=== PATIENT | male | born 1975 | race Caucasian/White ===

== ENCOUNTER 2018-12-05 08:07 | Emergency (ER) | payer BC ==
[2018-12-05 08:34] LABS: Absolute Lymphocytes (CBC) 2.4 K/uL (0.7-4.9); Absolute Monocytes 0.7 K/uL (0.1-1.3); Absolute Neutrophil 5.3 K/uL (1.8-8.0); Basophils % 1.3 % (0-1.3); Eosinophils % 2.6 % (0-4.4); Hematocrit 47.9 % (39.6-49.0); MPV 8.5 fL (7.6-11.3); RBC Red Blood Cell Count 5.72 M/uL (4.33-5.43)
[2018-12-05 08:35] LABS: Protime INR 0.98
[2018-12-05 08:53] LABS: ALT/SGPT 54 U/L (12-78); AST/SGOT 22 U/L (15-37); Alkaline Phosphatase 77 U/L (45-117); BUN Blood Urea Nitrogen 19 mg/dL (7-18); Bicarbonate 27 mmol/L (21-32); Bilirubin Direct 0.2 mg/dL (0-0.2); Bilirubin Total 1.1 mg/dL (0.2-1.0); Glucose Level 91 mg/dL (74-106); Magnesium 2.2 mg/dL (1.8-2.4); NT PRO-BNP 8 pg/mL (<125); Potassium 4.3 mmol/L (3.5-5.1); Protein, Total 7.1 g/dL (6.4-8.2); Sodium Level 140 mmol/L (136-145); Troponin (Emerg Dept Use Only) < 0.02 ng/mL (0.0-0.045)
--- NOTE | 2018-12-05 09:34 | RAD REPORT ---
EXAM DESCRIPTION: Danae Single View12/05/2018 8:34 am CLINICAL HISTORY: Chest pain COMPARISON: none FINDINGS: The lungs appear clear of acute infiltrate. The heart is normal size IMPRESSION: No acute abnormalities displayed
[2018-12-05] MEDS ORDERED: ASPIRIN 81 MG CHEWABLE TABLET ONE (09:46)
--- NOTE | 2018-12-05 11:51 | EDPHYS ---
Physician Documentation [facility] Name: Joshua Baez Jr Age: 43 yrs Sex: Male : 1975 Arrival Date: 12/05/2018 Time: 08:08 Bed 6 Private MD: ED Physician Geovanny Eubanks HPI: 12/05 08:20 This 43 yrs old Male presents to ER via Ambulatory with complaints of Chest jr8 Pain, Shoulder Pain. 08:20 The patient or guardian reports chest pain that is located primarily in the anterior jr8 chest wall, left. Onset: acutely, last night. The pain radiates to the left shoulder. Associated signs and symptoms: The patient has no apparent associated signs or symptoms. The chest pain is described as sharp. Duration: The patient or guardian reports multiple episodes. Modifying factors: The symptoms are alleviated by nothing. the symptoms are aggravated by nothing. Severity of pain: At its worst the pain was moderate. The patient has not experienced similar symptoms in the past. The patient has not recently seen a physician. Historical: - Allergies: 08:17 No Known Allergies; hb - Home Meds: 08:17 Zantac Oral [Active]; hb - PMHx: 08:17 GERD; hb - PSHx: 08:17 None; hb - Immunization history:: Adult Immunizations up to date. - Social history:: Smoking status: Patient/guardian denies using tobacco. - Ebola Screening: : No symptoms or risks identified at this time. ROS: 08:20 Eyes: Negative for injury, pain, redness, and discharge, ENT: Negative for injury, jr8 pain, and discharge, Neck: Negative for injury, pain, and swelling, Respiratory: Negative for shortness of breath, cough, wheezing, and pleuritic chest pain, Abdomen/GI: Negative for abdominal pain, nausea, vomiting, diarrhea, and constipation, Back: Negative for injury and pain, MS/Extremity: Negative for injury and deformity, Skin: Negative for injury, rash, and discoloration, Neuro: Negative for headache, weakness, numbness, tingling, and seizure. 08:20 Cardiovascular: Positive for chest pain, Negative for edema, orthopnea, palpitations, paroxysmal nocturnal dyspnea. Exam: 08:20 Eyes: Pupils equal round and reactive to light, extra-ocular motions intact. Lids and jr8 lashes normal. Conjunctiva and sclera are non-icteric and not injected. Cornea within normal limits. Periorbital areas with no swelling, redness, or edema. ENT: Nares patent. No nasal discharge, no septal abnormalities noted. Tympanic membranes are normal and external auditory canals are clear. Oropharynx with no redness, swelling, or masses, exudates, or evidence of obstruction, uvula midline. Mucous membranes moist. Neck: Trachea midline, no thyromegaly or masses palpated, and no cervical lymphadenopathy. Supple, full range of motion without nuchal rigidity, or vertebral point tenderness. No Meningismus. Chest/axilla: Normal chest wall appearance and motion. Nontender with no deformity. No lesions are appreciated. Cardiovascular: Regular rate and rhythm with a normal S1 and S2. No gallops, murmurs, or rubs. Normal PMI, no JVD. No pulse deficits. Respiratory: Lungs have equal breath sounds bilaterally, clear to auscultation and percussion. No rales, rhonchi or wheezes noted. No increased work of breathing, no retractions or nasal flaring. Abdomen/GI: Soft, non-tender, with normal bowel sounds. No distension or tympany. No guarding or rebound. No evidence of tenderness throughout. Back: No spinal tenderness. No costovertebral tenderness. Full range of motion. Skin: Warm, dry with normal turgor. Normal color with no rashes, no lesions, and no evidence of cellulitis. MS/ Extremity: Pulses equal, no cyanosis. Neurovascular intact. Full, normal range of motion. Neuro: Awake and alert, GCS 15, oriented to person, place, time, and situation. Cranial nerves II-XII grossly intact. Motor strength 5/5 in all extremities. Sensory grossly intact. Cerebellar exam normal. Normal gait. 08:40 ECG was reviewed by the Attending Physician. jr8 Vital Signs: 08:17 BP 115 / 83; Pulse 88; Resp 18; Temp 97.8; Pulse Ox 100% on R/A; Pain 4/10; hb 09:43 BP 132 / 82; Pulse 84; Resp 18; Pulse Ox 98% on R/A; ph 10:48 BP 114 / 80; Pulse 87; Resp 18; Temp 97.9; Pulse Ox 99% ; ph 12:22 BP 122 / 81; Pulse 86; Resp 18; Temp 97.9; Pulse Ox 99% on R/A; ph MDM: 08:16 Patient medically screened. jr8 11:48 Differential diagnosis: abnormal EKG, acute myocardial infarction, acute pericarditis, jr8 anxiety, chest wall pain, costochondritis, esophagitis, gastritis, gastroesophageal reflux disease (GERD), pleurisy, pneumonia, pneumothorax, pulmonary embolus, stable angina, thoracic aortic disection, unstable angina. HEART Score: History: Moderately Suspicious (1), ECG: Non specific repolarization disturbance / LBTB / PM (1), Age: < or = 45 years (0), Risk Factors: 1 or 2 risk factors (1), [Active Smoker] Troponin: < or = 1 x Normal Limit (0). The patient was given aspirin in the Emergency Department. Data reviewed: vital signs, nurses notes, lab test result(s), EKG, radiologic studies, plain films. Data interpreted: Pulse oximetry: on room air is 99 %. Interpretation: normal. Counseling: I had a detailed discussion with the patient and/or guardian regarding: the historical points, exam findings, and any diagnostic results supporting the discharge/admit diagnosis, lab results, radiology results, the need for outpatient follow up, a cow rider, a family practitioner. 12/05 08:17 Order name: Basic Metabolic Panel; Complete Time: 09:05 12/05 08:17 Order name: CBC with Diff; Complete Time: 08:42 12/05 08:17 Order name: LFT's; Complete Time: 09:05 12/05 08:17 Order name: Magnesium; Complete Time: 09:05 12/05 08:17 Order name: NT PRO-BNP; Complete Time: 09:05 12/05 08:17 Order name: PT-INR; Complete Time: 08:42 12/05 08:17 Order name: Troponin (emerg Dept Use Only); Complete Time: 09:05 12/05 08:17 Order name: XRAY Chest (1 view); Complete Time: 09:36 12/05 08:17 Order name: EKG; Complete Time: 08:18 12/05 08:17 Order name: Cardiac monitoring; Complete Time: 08:27 12/05 08:17 Order name: EKG - Nurse/Tech; Complete Time: 08:27 12/05 08:17 Order name: IV Saline Lock; Complete Time: :8 12/05 10:07 Order name: Troponin (emerg Dept Use Only); Complete Time: 11:48 12/05 08:17 Order name: Labs collected and sent; Complete Time: :12/05 08:17 Order name: O2 Per Protocol; Complete Time: :12/05 08:17 Order name: O2 Sat Monitoring; Complete Time: : EC:40 Rate is 91 beats/min. Rhythm is regular, Normal Sinus Rhythm. Right axis deviation jr8 noted. IL interval is normal at 178 msec. QRS interval is normal at 100 msec. QT interval is normal. No Q waves. T waves are Normal. T waves are Flattened in lead III. No ST changes noted. Clinical impression: NSR w/ Non-specific ST/T Changes. Interpreted by me. Reviewed by me. Administered Medications: 09:35 Drug: Aspirin Chewable Tablet 324 mg Route: PO; ph 09:44 Follow up: Response: No adverse reaction ph Disposition: 13:47 Co-signature as Attending Physician, Geovanny Eubanks MD I agree with the assessment and alex plan of care. Disposition: 12/05/18 11:50 Discharged to Home. Impression: Chest pain, unspecified. - Condition is Stable. - Discharge Instructions: Nonspecific Chest Pain, Aspirin and Your Heart, Chest Pain Observation. - Medication Reconciliation Form, Thank You Letter, Antibiotic Education, Prescription Opioid Use, Work release form form. - Follow up: Lazaro Cook MD; When: 2 - 3 days; Reason: Recheck today's complaints, Continuance of care, Re-evaluation by your physician. - Problem is new. - Symptoms have improved. Signatures: Dispatcher [employer] Geovanny Malave MD MD cha Roszak, Josh, PA PA jr8 Harleen Hill RN RN Rosina Chairez RN RN Corrections: (The following items were deleted from the chart) 12:22 11:50 12/05/2018 11:50 Discharged to Home. Impression: Chest pain, unspecified. ph Condition is Stable. Forms are Medication Reconciliation Form, Thank You Letter, Antibiotic Education, Prescription Opioid Use. Follow up: Lazaro Cook; When: 2 - 3 days; Reason: Recheck today's complaints, Continuance of care, Re-evaluation by your physician. Problem is new. Symptoms have improved. jr8
--- NOTE | 2018-12-05 11:51 | ER ---
Nurse's Notes [facility] Name: Joshua Baez Jr Age: 43 yrs Sex: Male : 1975 Arrival Date: 12/05/2018 Time: 08:08 Bed 6 Private MD: Diagnosis: Chest pain, unspecified Presentation: 12/05 08:16 Presenting complaint: Sharp left sided chest pain that radiates to left shoulder since hb yesterday. Denies cough. Transition of care: patient was not received from another setting of care. Onset of symptoms was December 04, 2018. Risk Assessment: Do you want to hurt yourself or someone else? Patient reports no desire to harm self or others. Care prior to arrival: None. 08:16 Method Of Arrival: Ambulatory 08:16 Acuity: MARLO 3 hb 09:43 Initial Sepsis Screen: Does the patient meet any 2 criteria? No. Patient's initial ph sepsis screen is negative. Does the patient have a suspected source of infection? No. Patient's initial sepsis screen is negative. Historical: - Allergies: 08:17 No Known Allergies; hb - Home Meds: 08:17 Zantac Oral [Active]; hb - PMHx: 08:17 GERD; hb - PSHx: 08:17 None; hb - Immunization history:: Adult Immunizations up to date. - Social history:: Smoking status: Patient/guardian denies using tobacco. - Ebola Screening: : No symptoms or risks identified at this time. Screenin:42 Abuse screen: Denies threats or abuse. Denies injuries from another. Nutritional ph screening: No deficits noted. Tuberculosis screening: No symptoms or risk factors identified. Fall Risk None identified. Assessment: 08:30 General: Appears in no apparent distress. uncomfortable, obese, well groomed, Behavior ph is calm, cooperative, appropriate for age, Denies fever, feeling ill. Pain: Complains of pain in anterior aspect of left upper chest and left breast Pain does not radiate. Pain began 2-3 days ago. Neuro: Level of Consciousness is awake, alert, obeys commands, Oriented to person, place, time, situation. Cardiovascular: Reports chest pain, Denies lightheadedness, nausea, palpitations, shortness of breath, Capillary refill < 3 seconds in bilateral fingers Patient's skin is warm and dry. Chest pain is located in left anterior chest wall is aggravated by breathing. Respiratory: Reports pain with respiration Airway is patent Respiratory effort is even, unlabored, Respiratory pattern is regular, symmetrical. GI: No signs and/or symptoms were reported involving the gastrointestinal system. Derm: Skin is intact, is healthy with good turgor, Skin is pink, warm \T\ dry. 09:44 Reassessment: Patient appears in no apparent distress at this time. Patient and/or ph family updated on plan of care and expected duration. Pain level reassessed. Patient is alert, oriented x 3, equal unlabored respirations, skin warm/dry/pink. 10:49 Reassessment: Patient appears in no apparent distress at this time. Patient and/or ph family updated on plan of care and expected duration. Pain level reassessed. Patient is alert, oriented x 3, equal unlabored respirations, skin warm/dry/pink. Pt resting quietly, awaiting results of repeat cardiac enzymes, VSS, SO at bedside. 12:21 Reassessment: Patient appears in no apparent distress at this time. Patient and/or ph family updated on plan of care and expected duration. Pain level reassessed. Patient is alert, oriented x 3, equal unlabored respirations, skin warm/dry/pink. Pt d/c home, instructed to follow up w/ canoe inspector final. Vital Signs: 08:17 BP 115 / 83; Pulse 88; Resp 18; Temp 97.8; Pulse Ox 100% on R/A; Pain 4/10; hb 09:43 BP 132 / 82; Pulse 84; Resp 18; Pulse Ox 98% on R/A; ph 10:48 BP 114 / 80; Pulse 87; Resp 18; Temp 97.9; Pulse Ox 99% ; ph 12:22 BP 122 / 81; Pulse 86; Resp 18; Temp 97.9; Pulse Ox 99% on R/A; ph Vitals: 10:48 Cardiac Rhythm Assessment Sinus rhythm. ph ED Course: 08:08 Patient arrived in ED. as 08:16 Kraig Saravia PA is PHCP. jr8 08:16 Geovanny Eubanks MD is Attending Physician. jr8 08:17 Triage completed. hb 08:17 Arm band placed on. hb 08:27 EKG done, by highway technician. reviewed by Geovanny Eubanks MD. Initial lab(s) drawn, by in, sent jb1 to lab. Inserted saline lock: 22 gauge in right antecubital area, using aseptic technique. Blood collected. 08:31 X-ray completed. Portable x-ray completed in exam room. Patient tolerated procedure ls3 well. 08:34 XRAY Chest (1 view) In Process Unspecified. EDMS 09:31 Harleen Hill, RN is Primary Nurse. ph 09:43 Patient has correct armband on for positive identification. phototypesetting equipment monitor on. Pulse ph ox on. NIBP on. Warm blanket given. 09:43 No provider procedures requiring assistance completed. Patient maintains SpO2 ph saturation greater than 95% on room air. 11:50 Lazaro Cook MD is Referral Physician. jr8 12:22 IV discontinued, intact, bleeding controlled, No redness/swelling at site. Pressure ph dressing applied. Administered Medications: 09:35 Drug: Aspirin Chewable Tablet 324 mg Route: PO; ph 09:44 Follow up: Response: No adverse reaction ph Outcome: 11:50 Discharge ordered by . jr8 12:22 Discharged to home ambulatory, with significant other. ph 12:22 Condition: good 12:22 Discharge instructions given to patient, family, Instructed on discharge instructions, follow up and referral plans. Demonstrated understanding of instructions, follow-up care. 12:22 Patient left the ED. ph Signatures: Dispatcher [employer] EDWV Mart Lazaro jb1 Alyx Ochoa Josh, PA PA jr8 Harleen Hill RN RN Rosina Chairez RN RN Clarissa Davis ls3
--- NOTE | 2018-12-05 12:16 | EKG ---
Test Date: 2018-12-05 Test Time: 08:25:26 Plant Puller: TAD MEASUREMENT RESULTS: Intervals: Rate: 91 NM: 178 QRSD: 100 QT: 364 QTc: 447 [place]: P: 45 NM: 178 QRS: 107 T: 32 INTERPRETIVE STATEMENTS: Normal sinus rhythm Possible Right ventricular hypertrophy Abnormal ECG No previous ECG available for comparison Electronically Signed On 12-05-18 12:15:36 CDT by Lazaro Cook
== END 2018-12-05 12:22 | disposition home or self-care (01) ==
LOC: ER 08:07
DX: R07.9 Chest pain, unspecified (principal); K21.9 Gastro-esophageal reflux disease without esophagitis
CPT/HCPCS: 36415; 71045; 80048; 80076; 83735; 83880; 84484; 85025; 85610; 93005; 99285

== ENCOUNTER 2019-09-13 18:37 | Emergency (ER) | payer BC ==
[2019-09-13] MEDS ORDERED: NA CHLORIDE 0.9% 1,000 ML ONE (20:20)
[2019-09-13] MEDS ORDERED: KETOROLAC 30 MG/ML INJ ONE (20:20)
[2019-09-13 20:23] LABS: Absolute Lymphocytes (CBC) 2.8 K/uL (0.7-4.9); Basophils % 0.8 % (0-1.3); Lymphocytes % 30.4 % (15.3-44.8); MPV 8.3 fL (7.6-11.3); RBC Red Blood Cell Count 5.15 M/uL (4.33-5.43)
[2019-09-13 20:42] LABS: Albumin 3.8 g/dL (3.4-5.0); Potassium 3.9 mmol/L (3.5-5.1); Protein, Total 6.6 g/dL (6.4-8.2)
[2019-09-13] MEDS ORDERED: LIDOCAINE 1% MPF 5 ML VIAL ONE (20:46)
[2019-09-13] MEDS ORDERED: BUPIVACAINE 0.5% PF 10 ML VIAL ONE (20:46)
--- NOTE | 2019-09-13 21:06 | RAD REPORT ---
EXAM DESCRIPTION: RAD - Foot Right 3 View - 09/13/2019 8:53 pm CLINICAL HISTORY: PAIN Pain and swelling COMPARISON: No comparisons FINDINGS: Mild soft tissue swelling affects the great toe. No fracture or aggressive bone lesion. Sm all calcaneal spurs are present.
--- NOTE | 2019-09-13 23:20 | ER ---
Nurse's Notes [facility] Name: Joshua Baez Jr Age: 44 yrs Sex: Male : 1975 Arrival Date: 09/13/2019 Time: 18:41 Bed 30 Private MD: Diagnosis: Ingrowing nail;Cellulitis and acute lymphangitis of other parts of limb Presentation: 09/13 19:14 Presenting complaint: Patient states: Reports he was seen at [facility] 09/11/19 for right ea foot pain and redness, reports he was diagnosed with fungal nail and infection of the foot. Pt states "my foot hurts and it feels like the redness is traveling up my leg". Transition of care: patient was not received from another setting of care. Onset of symptoms was September 13, 2019. Risk Assessment: Do you want to hurt yourself or someone else? Patient reports no desire to harm self or others. Initial Sepsis Screen: Does the patient meet any 2 criteria? No. Patient's initial sepsis screen is negative. Does the patient have a suspected source of infection? No. Patient's initial sepsis screen is negative. Care prior to arrival: Medication(s) given: bactrim and Cipro. 19:14 Method Of Arrival: Ambulatory ea 19:14 Acuity: MARLO 4 ea Historical: - Allergies: 19:16 No Known Allergies; ea - Home Meds: 19:16 Zantac Oral [Active]; ea - PMHx: 19:16 GERD; ea - PSHx: 19:16 None; ea - Immunization history:: Adult Immunizations up to date. - Social history:: Smoking status: Patient/guardian denies using tobacco. - Ebola Screening: : No symptoms or risks identified at this time. - Family history:: not pertinent. Screenin:16 Abuse screen: Denies threats or abuse. Nutritional screening: No deficits noted. ea Tuberculosis screening: No symptoms or risk factors identified. Fall Risk None identified. Assessment: 19:20 General: Appears uncomfortable, Behavior is calm, cooperative, appropriate for age. tr5 Pain: Complains of pain in right foot. Neuro: Level of Consciousness is awake, alert, obeys commands, Oriented to person, place, time, Algebra Tutor are equal bilaterally. Cardiovascular: Heart tones present. Respiratory: Airway is patent Respiratory effort is even, unlabored, Respiratory pattern is regular, symmetrical. GI: No signs and/or symptoms were reported involving the gastrointestinal system. : No signs and/or symptoms were reported regarding the genitourinary system. EENT: No signs and/or symptoms were reported regarding the EENT system. Derm: Swelling to R foot and R great toe. 21:00 Reassessment: Patient appears in no apparent distress at this time. Patient and/or tr5 family updated on plan of care and expected duration. Pain level reassessed. Patient is alert, oriented x 3, equal unlabored respirations, skin warm/dry/pink. 22:00 Reassessment: Patient appears in no apparent distress at this time. Patient and/or tr5 family updated on plan of care and expected duration. Pain level reassessed. Patient is alert, oriented x 3, equal unlabored respirations, skin warm/dry/pink. 22:58 Reassessment: Patient appears in no apparent distress at this time. Patient and/or tr5 family updated on plan of care and expected duration. Pain level reassessed. Patient is alert, oriented x 3, equal unlabored respirations, skin warm/dry/pink. Pt updated on plan of care. Awaiting MD to visit patient room for treatment. Vital Signs: 19:16 BP 119 / 82; Pulse 88; Resp 18; Temp 98.3; Pulse Ox 98% on R/A; Weight 124.74 kg; ea Height 6 ft. 0 in. (182.88 cm); Pain 8/10; 21:00 BP 119 / 107; Pulse 84; Resp 17; Pulse Ox 100% on R/A; tr5 22:00 BP 129 / 87; Pulse 80; Resp 17; Pulse Ox 99% on R/A; tr5 19:16 Body Mass Index 37.30 (124.74 kg, 182.88 cm) ea ED Course: 18:41 Patient arrived in ED. mr 19:15 Rodrigue Hemphill, RN is Primary Nurse. tr5 19:16 Triage completed. ea 19:16 Arm band placed on right wrist. Patient placed in an exam room, on a stretcher, on ea pulse oximetry. 19:21 Geovanny Eubanks MD is Attending Physician. [facility] 19:40 Call light in reach. Side rails up X 1. tr5 20:10 Initial lab(s) drawn, by nh, sent to lab. Inserted saline lock: 24 gauge in right tr5 antecubital area, using aseptic technique. 20:20 Awaiting lab results, Awaiting for x-ray. tr5 20:53 Foot Right 3 View XRAY In Process Unspecified. EDMS 21:30 Awaiting radiology results. tr5 22:00 Awaiting ED provider evaluation. tr5 22:08 Diet: cup of coffee. jp3 23:19 Gerard Sanders DPM is Referral Physician. [facility] 09/14 00:47 No provider procedures requiring assistance completed. IV discontinued. tr5 Administered Medications: 09/13 20:24 Drug: NS 0.9% 1000 ml Route: IV; Rate: 1 bolus; Site: right antecubital; tr5 20:24 Drug: TORadol 30 mg Route: IVP; Site: right antecubital; tr5 21:00 Follow up: Response: Marked relief of symptoms tr5 23:48 Drug: Lidocaine (1 %) 5 ml Volume: 5 ml; Route: Infiltration; tr5 23:48 Drug: Bupivacaine (0.5 %) 5 ml Volume: 10 ml; Route: Infiltration; tr5 Outcome: 23:19 Discharge ordered by . [facility] 09/14 00:47 Discharged to home ambulatory, with family. tr5 Condition: stable Discharge instructions given to patient, family, Instructed on discharge instructions, follow up and referral plans. medication usage, Demonstrated understanding of instructions, follow-up care, medications, wound care, Prescriptions given X 3. 00:48 Patient left the ED. tr5 Signatures: Dispatcher [employer] Geovanny Malave MD MD cha Rivera, Mary mr Antunez, Elena, Lobo De Paz RN, ea [facility] Rodrigue Hemphill RN RN tr5
--- NOTE | 2019-09-13 23:21 | EDPHYS ---
Physician Documentation [facility] Name: Joshua Baez Jr Age: 44 yrs Sex: Male : 1975 Arrival Date: 09/13/2019 Time: 18:41 Bed 30 Private MD: LUIS M Physician Geovanny Eubanks HPI: 09/13 20:06 This 44 yrs old Male presents to ER via Ambulatory with complaints of Foot alex Infection. 20:06 The patient presents with decreased range of motion, pain, swelling, tenderness. The alex complaints affect the lateral aspect of right foot and medial aspect of right foot. Context: The problem was sustained at home. Onset: The symptoms/episode began/occurred 14 day(s) ago. Modifying factors: The symptoms are alleviated by elevating leg, remaining still, the symptoms are aggravated by movement, weight bearing. Associated signs and symptoms: The patient has no apparent associated signs or symptoms. The patient presents with decreased range of motion, pain, swelling, tenderness. The complaints affect the right foot. Historical: - Allergies: 19:16 No Known Allergies; ea - Home Meds: 19:16 Zantac Oral [Active]; ea - PMHx: 19:16 GERD; ea - PSHx: 19:16 None; ea - Immunization history:: Adult Immunizations up to date. - Social history:: Smoking status: Patient/guardian denies using tobacco. - Ebola Screening: : No symptoms or risks identified at this time. - Family history:: not pertinent. ROS: 20:06 Constitutional: Negative for fever, chills, and weight loss, Eyes: Negative for injury, alex pain, redness, and discharge, ENT: Negative for injury, pain, and discharge, Neck: Negative for injury, pain, and swelling, Cardiovascular: Negative for chest pain, palpitations, and edema, Respiratory: Negative for shortness of breath, cough, wheezing, and pleuritic chest pain, Abdomen/GI: Negative for abdominal pain, nausea, vomiting, diarrhea, and constipation, Back: Negative for injury and pain, : Negative for injury, bleeding, discharge, and swelling, Neuro: Negative for headache, weakness, numbness, tingling, and seizure, Psych: Negative for depression, anxiety, suicide ideation, homicidal ideation, and hallucinations, Allergy/Immunology: Negative for hives, rash, and allergies, Endocrine: Negative for neck swelling, polydipsia, polyuria, polyphagia, and marked weight changes, Hematologic/Lymphatic: Negative for swollen nodes, abnormal bleeding, and unusual bruising. 20:06 MS/extremity: Positive for decreased range of motion, pain, swelling, tenderness, of the right foot. Exam: 20:06 Constitutional: This is a well developed, well nourished patient who is awake, alert, alex and in no acute distress. Head/Face: Normocephalic, atraumatic. Eyes: Pupils equal round and reactive to light, extra-ocular motions intact. Lids and lashes normal. Conjunctiva and sclera are non-icteric and not injected. Cornea within normal limits. Periorbital areas with no swelling, redness, or edema. ENT: Nares patent. No nasal discharge, no septal abnormalities noted. Tympanic membranes are normal and external auditory canals are clear. Oropharynx with no redness, swelling, or masses, exudates, or evidence of obstruction, uvula midline. Mucous membranes moist. Neck: Trachea midline, no thyromegaly or masses palpated, and no cervical lymphadenopathy. Supple, full range of motion without nuchal rigidity, or vertebral point tenderness. No Meningismus. Chest/axilla: Normal chest wall appearance and motion. Nontender with no deformity. No lesions are appreciated. Cardiovascular: Regular rate and rhythm with a normal S1 and S2. No gallops, murmurs, or rubs. Normal PMI, no JVD. No pulse deficits. Respiratory: Lungs have equal breath sounds bilaterally, clear to auscultation and percussion. No rales, rhonchi or wheezes noted. No increased work of breathing, no retractions or nasal flaring. Abdomen/GI: Soft, non-tender, with normal bowel sounds. No distension or tympany. No guarding or rebound. No evidence of tenderness throughout. Back: No spinal tenderness. No costovertebral tenderness. Full range of motion. Neuro: Awake and alert, GCS 15, oriented to person, place, time, and situation. Cranial nerves II-XII grossly intact. Motor strength 5/5 in all extremities. Sensory grossly intact. Cerebellar exam normal. Normal gait. Psych: Awake, alert, with orientation to person, place and time. Behavior, mood, and affect are within normal limits. 20:06 Musculoskeletal/extremity: ROM: limited active range of motion due to pain, limited passive range of motion due to pain, Circulation is intact in all extremities. Sensation intact. Compartment Syndrome exam of affected extremity: is normal. DVT Exam: negative Homans' sign noted on exam, no appreciated bluish discoloration, pain, swelling, tenderness, erythema, increased warmth, that is mild, of the instep of right foot. Vital Signs: 19:16 BP 119 / 82; Pulse 88; Resp 18; Temp 98.3; Pulse Ox 98% on R/A; Weight 124.74 kg; ea Height 6 ft. 0 in. (182.88 cm); Pain 8/10; 21:00 BP 119 / 107; Pulse 84; Resp 17; Pulse Ox 100% on R/A; tr5 22:00 BP 129 / 87; Pulse 80; Resp 17; Pulse Ox 99% on R/A; tr5 19:16 Body Mass Index 37.30 (124.74 kg, 182.88 cm) ea Procedures: 23:18 I \T\ D: Incision and drainage was performed for an abscess of the right Prepped with [facility] Betadine, Anesthetized with 5 ml's 1% Lidocaine. 0.5 bupivicaine. nail removed. MDM: 19:22 Patient medically screened. [facility] 09/14 00:04 Data reviewed: vital signs, nurses notes, lab test result(s), radiologic studies, plain [facility] films. 09/13 20:05 Order name: CBC with Diff; Complete Time: 23:02 [facility] 09/13 20:05 Order name: Comprehensive Metabolic Panel; Complete Time: 23:02 [facility] 09/13 20:05 Order name: Foot Right 3 View XRAY; Complete Time: 23:02 [facility] 09/13 20:10 Order name: Dressing - Wound; Complete Time: 20:59 [facility] 09/13 20:10 Order name: Gloves, Sterile; Complete Time: 20:46 [facility] 09/13 20:10 Order name: Setup Suture Tray; Complete Time: 20:46 [facility] 09/13 23:17 Order name: Post-op shoe; Complete Time: 23:22 [facility] Administered Medications: 09/13 20:24 Drug: NS 0.9% 1000 ml Route: IV; Rate: 1 bolus; Site: right antecubital; tr5 20:24 Drug: TORadol 30 mg Route: IVP; Site: right antecubital; tr5 21:00 Follow up: Response: Marked relief of symptoms tr5 23:48 Drug: Lidocaine (1 %) 5 ml Volume: 5 ml; Route: Infiltration; tr5 23:48 Drug: Bupivacaine (0.5 %) 5 ml Volume: 10 ml; Route: Infiltration; tr5 Disposition: 09/13/19 23:19 Discharged to Home. Impression: Ingrowing nail, Cellulitis and acute lymphangitis of other parts of limb. - Condition is Stable. - Discharge Instructions: Ingrown Toenail, Fingernail or Toenail Removal, Adult, Cellulitis, Adult, [id number]. - Prescriptions for Bactroban 2 % Topical Ointment - Apply to affected area 1 application by TOPICAL route every 12 hours; 30 gram. Tylenol- Codeine #3 300-30 mg Oral Tablet - take 2 tablets by ORAL route every 6 hours As needed; 24 tablet. Doxycycline Hyclate 100 mg Oral Tablet - take 1 tablet by ORAL route every 12 hours; 20 tablet. Bactrim DS 800- 160 mg Oral Tablet - take 1 tablet by ORAL route every 12 hours for 10 days; 20 tablet. - Medication Reconciliation Form, Thank You Letter, Antibiotic Education, Prescription Opioid Use, Work release form form. - Follow up: Private Physician; When: 2 - 3 days; Reason: Recheck today's complaints, Continuance of care, Re-evaluation by your physician. Follow up: Gerard Sanders DPM; When: 2 - 3 days; Reason: Recheck today's complaints, Continuance of care, Re-evaluation by your physician. - Problem is new. - Symptoms have improved. Signatures: Dispatcher [employer] EDGeovanny Cordova MD MD cha Antunez, Elena, ETHEL RN Rodrigue Dubose RN RN tr5 Corrections: (The following items were deleted from the chart) 20:09 20:06 Constitutional: This is a well developed, well nourished patient who is awake, alex alert, and in no acute distress. Head/Face: Normocephalic, atraumatic. Eyes: Pupils equal round and reactive to light, extra-ocular motions intact. Lids and lashes normal. Conjunctiva and sclera are non-icteric and not injected. Cornea within normal limits. Periorbital areas with no swelling, redness, or edema. ENT: Nares patent. No nasal discharge, no septal abnormalities noted. Tympanic membranes are normal and external auditory canals are clear. Oropharynx with no redness, swelling, or masses, exudates, or evidence of obstruction, uvula midline. Mucous membranes moist. Neck: Trachea midline, no thyromegaly or masses palpated, and no cervical lymphadenopathy. Supple, full range of motion without nuchal rigidity, or vertebral point tenderness. No Meningismus. Chest/axilla: Normal chest wall appearance and motion. Nontender with no deformity. No lesions are appreciated. Cardiovascular: Regular rate and rhythm with a normal S1 and S2. No gallops, murmurs, or rubs. Normal PMI, no JVD. No pulse deficits. Respiratory: Lungs have equal breath sounds bilaterally, clear to auscultation and percussion. No rales, rhonchi or wheezes noted. No increased work of breathing, no retractions or nasal flaring. Abdomen/GI: Soft, non-tender, with normal bowel sounds. No distension or tympany. No guarding or rebound. No evidence of tenderness throughout. Back: No spinal tenderness. No costovertebral tenderness. Full range of motion. Skin: Warm, dry with normal turgor. Normal color with no rashes, no lesions, and no evidence of cellulitis. MS/ Extremity: Pulses equal, no cyanosis. Neurovascular intact. Full, normal range of motion. Neuro: Awake and alert, GCS 15, oriented to person, place, time, and situation. Cranial nerves II-XII grossly intact. Motor strength 5/5 in all extremities. Sensory grossly intact. Cerebellar exam normal. Normal gait. Psych: Awake, alert, with orientation to person, place and time. Behavior, mood, and affect are within normal limits. alex 23:20 23:19 09/13/2019 23:19 Discharged to Home. Impression: Ingrowing nail; Cellulitis and alex acute lymphangitis of other parts of limb. Condition is Stable. Forms are Medication Reconciliation Form, Thank You Letter, Antibiotic Education, Prescription Opioid Use. Follow up: Private Physician; When: 2 - 3 days; Reason: Recheck today's complaints, Continuance of care, Re-evaluation by your physician. Problem is new. Symptoms have improved. alex 09/14 00:48 09/13 23:20 09/13/2019 23:19 Discharged to Home. Impression: Ingrowing nail; Cellulitis tr5 and acute lymphangitis of other parts of limb. Condition is Stable. Forms are Medication Reconciliation Form, Thank You Letter, Antibiotic Education, Prescription Opioid Use. Follow up: Private Physician; When: 2 - 3 days; Reason: Recheck today's complaints, Continuance of care, Re-evaluation by your physician. Follow up: Dr. Gerard Sanders; When: 2 - 3 days; Reason: Recheck today's complaints, Continuance of care, Re-evaluation by your physician. Problem is new. Symptoms have improved. alex
[2019-09-13] MEDS ORDERED: DOXYCYCLINE 100 MG CAP PO ONE (23:22)
[2019-09-13] MEDS ORDERED: SMZ./TMP. 800/160 MG TABLET ONE (23:22)
[2019-09-14 01:50] VITALS: TEMP 98.3
[2019-09-14 01:53] VITALS: BP 129/87; O2SAT 99
== END 2019-09-14 00:48 | disposition home or self-care (01) ==
LOC: ER 18:37
PROC: 0H9MXZZ Drainage of Right Foot Skin, External Approach (ICD-10-PCS; principal; 2019-09-14)
DX: L03.115 Cellulitis of right lower limb (principal); L03.125 Acute lymphangitis of right lower limb; L60.0 Ingrowing nail; K21.9 Gastro-esophageal reflux disease without esophagitis
CPT/HCPCS: 85025; 36415; 80053; 73630; 96374; 99284; 10060; J7030

== ENCOUNTER 2022-02-03 06:11 | Day surgery (SDC) | payer OTHER ==
[2022-02-03 07:00] LABS: Hematocrit 45.7 % (39.6-49.0); MPV 7.9 fL (7.6-11.3); RBC Red Blood Cell Count 5.51 M/uL (4.33-5.43)
[2022-02-03 07:12] LABS: Potassium 3.7 mmol/L (3.5-5.1)
[2022-02-03] MEDS ORDERED: Ringers Lactate 1,000 ML IV ONE (07:13)
--- NOTE | 2022-02-03 07:16 | RAD REPORT ---
EXAM DESCRIPTION: RAD - Chest Single View - 02/03/2022 6:43 am CLINICAL HISTORY: PRE-OP COMPARISON: Portable November 2018 TECHNIQUE: AP portable chest image was obtained 02/03/2022 6:43 am . FINDINGS: Lung volumes are quite low. This results in hazy retrocardiac left lung base. True infiltr ate is not suspected. No failure or volume overload. Heart and vasculature are normal. No measurable pleural effusion and no pneumothorax. No acute bony abnormality seen. No acute aortic findings suspected. IMPRESSION: Shallow inspiration exam shows no acute cardiopulmonary finding.
[2022-02-03] MEDS ORDERED: ACETAMINOPHEN 500 MG TAB ONE (08:16)
[2022-02-03] MEDS ORDERED: CIPROFLOXACIN 400mg IV 400 MG/200 ML BAG IV ONE (08:30)
[2022-02-03] MEDS ORDERED: FENTANYL CITR 100 MCG/2 ML ONE (09:07)
[2022-02-03] MEDS ORDERED: propofoL 200 MG/20 ML VIAL IV ONE (09:07)
[2022-02-03] MEDS ORDERED: ONDANSETRON 4 MG/2 ML VIAL ONE (09:08)
[2022-02-03] MEDS ORDERED: KETOROLAC 30 MG/ML INJ ONE (09:08)
[2022-02-03] MEDS ORDERED: LIDOCAINE 2% MPF 5 ML VIAL ONE (09:08)
[2022-02-03] MEDS ORDERED: MIDAZOLAM HCL 2 MG/2 ML INJ ONE (09:08)
[2022-02-03] MEDS: BUPIVACAINE 0.5% PF 10 ML VIAL ONE ×2 (09:24→10:25)
[2022-02-03] MEDS ORDERED: KETAMINE HCL 500 MG/5 ML VIAL ONE (09:29)
--- NOTE | 2022-02-03 09:32 | EKG ---
Test Date: 2022-02-03 Test Time: 05:46:01 Bark Skinner: SOTERO MEASUREMENT RESULTS: Intervals: Rate: 70 ME: 186 QRSD: 104 QT: 394 QTc: 425 [place]: P: 44 ME: 186 QRS: 101 T: 40 INTERPRETIVE STATEMENTS: Normal sinus rhythm Possible Right ventricular hypertrophy Abnormal ECG Compared to ECG 12/05/2018 08:25:26 No significant changes Electronically Signed On 02-03-22 09:31:54 CDT by Naga Blood
[2022-02-03] MEDS ORDERED: BUPIVACAINE 0.5% PF 10 ML VIAL ONE (10:20)
--- NOTE | 2022-02-03 11:10 | P.BOP ---
Preoperative diagnosis: thrombosed prolapsed tender external hemorrhoids Postoperative diagnosis: same Primary procedure: EUA, Anoscopy, Rigid proctostocopy, Hemorroidectomy 2 bundles Estimated blood loss: <10cc Specimen: hemorrhids x 2 Findings: multiple internal and external hemmrrhoids Anesthesia: General Complications: None Transferred to: Recovery Room Condition: Good
[2022-02-03] MEDS ORDERED: HYDROCODONE/APAP 5/325 MG TAB PO ONE (11:20)
[2022-02-03] MEDS ORDERED: HYDROCODONE/APAP 5/325 MG TAB ONE (11:59)
[2022-02-03 12:23] VITALS: BP 112/82; TEMP 97.1; O2SAT 99
--- NOTE | 2022-02-05 00:47 | DS ---
Date of Discharge: 02/03/2022 Diagnosis: Thrombosed hemorrhoids. Procedure: EUA, anoscopy, proctoscopy hemorrhoidectomy. Disposition: Home. Activity: As tolerated. No heavy lifting. Discharge Instructions: Followup in my office in 1 week. Call for appointment [phone]. Sitz baths 4 times a day and after every bowel movement. Discharge Medications: We gave him the Vicodin, the Cipro, and he also has stool softeners at home. The patient also had a bowel prep preoperatively. MAGI/GUS Voice ID: [id number] Report ID: [id number]
--- NOTE | 2022-02-05 01:03 | OP ---
Date of Procedure: 02/03/2022 Surgeon: Bautista Ochoa MD Preoperative Diagnosis: Thrombosed prolapsed tender external hemorrhoids. Postoperative Diagnosis: Thrombosed prolapsed tender external hemorrhoids. Procedure: Examination under anesthesia, anoscopy, rigid proctoscopy, hemorrhoidectomy 2 bundles. Estimated Blood Loss: Less than 10 mL. Specimen: Two hemorrhoid bundles, left and right posterolateral. Findings: Multiple internal and external hemorrhoids. Anesthesia: General plus local. Indication: This is the case of a male, who comes to us with 2 areas of masses on the perianal regio n. He can barely sit. He says he has been dealing with that with several weeks. He has been using sitz baths and stool softeners, creams, and then he went to primary who told him it was hemorrhoids a nd he was sent to us for hemorrhoidectomy. He understand the importance of a hemorrhoidal care and l osing weight and no heavy lifting, but this time this is not improving and is very tender so we offer ed him EUA, anoscopy, proctoscopy, possible hemorrhoidectomy with benefits, alternatives, and risks i ncluding, but not limited to infection, bleeding, damage to adjacent structures, anesthesia complicat ion, recurrence [place] and even . He also understands this may not relieve symptoms, he might need more than one surgical intervention. He understands he may have some other internal and external hem orrhoids. He has to help us with losing weight and no heavy lifting. Also, follow up with his gastr oenterologist to diminish the chance of having some other hemorrhoids get large in the future and hav e to repeat the surgery. He understood, signed a consent. Procedure In Detail: The patient was brought to the operating room, placed in supine position. Anes thesia was without complication. The patient was placed in lithotomy position with proper protection . Local anesthesia was applied. We had a rigid proctoscopy. We just moved all the way to about 15 cm. We noticed multiple internal and external hemorrhoids, but we noticed which were the one he desc ribes as a hard mass, what it looked like a thrombosed hemorrhoid left and right posterolateral 2 dif ferent bundles. Once we removed the rigid proctoscopy, we placed an anoscope with a window on the si de that helped to visualize the anal canal a little bit better. Once again we confirmed the same sunday gnosis. We did each one individually using the same technique, which consists of, we opened anoderm with a sharp knife, identified the hemorrhoidal plexus, dissected free from the subcutaneous tissue, protected the sphincter and then transect that hemorrhoidal plexus with the Harmonic Scalpel. The an oderm was approximated with 3-0 chromic after making sure it has complete hemostasis. Then, after th at, we went to the second bundle, it is left posterolateral. First we did the right side. We opened the anoderm, identified the hemorrhoidal plexus, removed the hemorrhoidal plexus away from the sphin cter and transected that with a Harmonic Scalpel. The area was irrigated, no bleeding. The anoderm was approximated with 3-0 chromic and then we placed Surgicel over the area. Once again, we injected local anesthetic in that region, take a look at the area, once again no bleeding, so we proceeded th en to remove the anoscope under direct visualization. Sponge count and instrument counts were correc t. The patient tolerated the procedure well. The patient was sent to recovery in stable condition. MAGI/GUS Voice ID: [id number] Report ID: [id number]
== END 2022-02-03 12:20 | disposition home or self-care (01) ==
LOC: OR 06:11
PROVIDERS: ATTEND Surgery
PROC: 0DJD8ZZ Inspection of Lower Intestinal Tract, Via Natural or Artificial Opening Endoscopic (ICD-10-PCS; 2022-02-03)
PROC: 06BY0ZC Excision of Hemorrhoidal Plexus, Open Approach (ICD-10-PCS; principal; 2022-02-03 09:00)
DX: K64.5 Perianal venous thrombosis (principal); K64.8 Other hemorrhoids; Z20.822 Contact with and (suspected) exposure to COVID-19
CPT/HCPCS: 93005; 85025; 80048; 36415; 88304; 71045; 46320; 45300; U0003; J2704; J2250; J3010; J7120; J2405; J0744

== ENCOUNTER 2023-12-30 11:12 | Day surgery (SDC) | payer BC, OTHER ==
[2023-12-29 12:18] LABS: Anion Gap 6.9 mEq/L (5.0-15.0); Potassium 3.9 mEq/L (3.5-5.1)
[2023-12-30] MEDS: Ringers Lactate 1,000 ML IV ONE (11:40)
[2023-12-30] MEDS: BUPIVACAINE 0.25% PF 10 ML VIAL ONE (12:56)
[2023-12-30] MEDS: CEFOXITIN SODIUM 2 GM/VIAL ONE (12:57)
[2023-12-30] MEDS ORDERED: SUCCINYLCHOLINE 20 MG/ML (10 ML) IV ONE (13:05)
[2023-12-30] MEDS ORDERED: SUGAMMADEX SODIUM 200 MG/2 ML VIAL IV ONE (13:05)
[2023-12-30] MEDS ORDERED: LIDOCAINE 2% MPF 5 ML VIAL ONE (13:06)
[2023-12-30] MEDS ORDERED: propofoL 200 MG/20 ML VIAL IV ONE (13:06)
[2023-12-30] MEDS ORDERED: ONDANSETRON 4 MG/2 ML VIAL ONE (13:06)
[2023-12-30] MEDS ORDERED: MIDAZOLAM HCL 2 MG/2 ML INJ ONE (13:06)
[2023-12-30] MEDS ORDERED: FENTANYL CITR 100 MCG/2 ML ONE (13:07)
[2023-12-30] MEDS ORDERED: dexAMETHasone 10 MG/ML VIAL ONE (14:09)
--- NOTE | 2023-12-30 14:51 | P.OP ---
Preoperative diagnosis: Perineal Skin lesions Postoperative diagnosis: Perineal Skin lesions Primary procedure: Excision of Perineal Skin Lesions Anesthesia: GETA + Local Estimated blood loss: <5cc Specimen: LEFT and RIGHT Perineal skin lesions ~ 4cm x 2cm Findings: LEFT and RIGHT Perineal skin lesions ~ 4cm x 2cm Complications: None Transferred to: Recovery Room Condition: Good
[2023-12-30 15:48] VITALS: TEMP 97; O2SAT 97
[2023-12-30] MEDS: HYDROCODONE/APAP 5/325 MG TAB ONE (16:00)
[2023-12-30 16:57] VITALS: BP 139/87
--- NOTE | 2023-12-30 17:07 | OP ---
Date of Procedure: 12/30/2023 Surgeon: Deni Nicholson MD, Preoperative Diagnosis: Perineal skin lesions. Postoperative Diagnosis: Perineal skin lesions. Procedure Performed: Wide local excision of perineal skin lesions x2. Anesthesia: General endotracheal plus local with 0.25% Marcaine without epinephrine. Estimated Blood Loss: 5 cc. Specimens: Left and right perineal skin lesions approximately 4 cm x 2 cm. Findings: Same as specimen. Complications: None. Disposition: Patient transferred to recovery room in good condition. Procedure In Detail: After informed consent was obtained, patient was brought into the operating sravan m, prepped and draped in the usual sterile fashion after adequate anesthesia was achieved. The patie nt remained in lithotomy position. At this point, I made an elliptical incision around perineal skin lesions down through subcutaneous tissues using a 15 blade after appropriately anesthetizing the ski n. I made an elliptical incision approximately 4 cm x 2 cm on the both right and left perineal exoph ytic skin lesions. These were sent off for pathologic examination. The area was copiously irrigated and then closed with interrupted 3-0 nylon sutures and a sterile dressing was placed over top. The patient tolerated the procedure well without incident or complication and transferred to PACU in good condition. All counts were correct at the e nd of the case. ROMI/GUS Voice ID: [id number] Report ID: [id number]
--- NOTE | 2023-12-30 17:49 | EKG ---
Test Date: 2023-12-29 Test Time: 11:41:06 Correction Officer: EVELIN MEASUREMENT RESULTS: Intervals: Rate: 99 [place]: 172 QRSD: 104 QT: 342 QTc: 438 [place]: P: 45 [place]: 172 QRS: 96 T: 28 INTERPRETIVE STATEMENTS: Normal sinus rhythm Rightward axis Borderline ECG Compared to ECG 02/03/2022 05:46:01 Right-axis deviation now present Electronically Signed On 12-30-23 17:46:35 CDT by Usman Kay
== END 2023-12-30 16:20 | disposition home or self-care (01) ==
LOC: OR 11:12
PROVIDERS: ATTEND Surgery
PROC: 0WBM0ZZ Excision of Male Perineum, Open Approach (ICD-10-PCS; principal; 2023-12-30 13:00)
DX: L82.1 Other seborrheic keratosis (principal); K64.4 Residual hemorrhoidal skin tags
CPT/HCPCS: 11424; 93005; 80048; 36415; 82947; J2704; J2001; J2250; J3010; J1100; J0694; J2405; J7120; 88305